=== PATIENT | female | born 1955 | race Caucasian/White ===

== ENCOUNTER 2019-03-25 13:59 | Emergency (ER) | payer BC ==
--- OUTSIDE RECORDS SUMMARY | 2019-03-25 14:05 | XMS REPORT | Continuity of Care Document ---
:1955 External Reference #:[id number] Author Name Shawanda Montgomery MD Address [address] [place] [address] Care Team Providers Name Role Phone Shawanda Montgomery MD Primary Care Physician Unavailable Payers Date Identification Numbers Payment Provider Subscriber Effective: 2008 Policy Number: [id number] [facility] Keren Torres PayID: [id number] [address] [place] [address] Expires: 2008 Policy Number: [id number] [employer] DO Not Use Keren Torres Group Number: [id number] [address] PayID: [place] [address] Advance Directives Description No Information Available Problems Active Problems Provider Date Gastroesophageal reflux disease Homar Haney DO Onset: 01/19/2011 Vitamin D deficiency Homar Haney DO Onset: 01/19/2011 Menopausal and postmenopausal disorders Homar Haney DO Onset: 2010 Moderate major depression, single episode Homar Haney DO Onset: 2010 Hypothyroidism Homar Haney DO Onset: 12/06/2006 Arthropathy Shawanda Montgomery MD Onset: 04/18/2018 Lumbar radiculopathy Shawanda Montgomery MD Onset: 04/18/2018 Neck pain Shawanda Montgomery MD Onset: 04/18/2018 Obstructive sleep apnea syndrome Shawanda Montgomery MD Onset: 09/16/2018 Inactive Problems Mitral valve disorder Shawanda Montgomery MD Onset: 01/28/2018 Inactive: 04/18/2018 Family History Date Family Member(s) Observation Comments General Atrial Fibrillation : (age 80 Father due to Alzheimer's diagnosed at 72 Years) Disease Mother Atrial Fibrillation : (age 87 Mother due to CHF also had CML Years) First Brother mitral valve repair Second Brother mitral valve repair : (age 68 Third Brother due to Cancer, Brain Years) Social History Type Date Description Comments Sex Unknown Marital Status 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 ETOH Use Occasionally consumes alcohol Tobacco Use Start: Unknown Patient has never smoked Smoking Status Reviewed: 04/18/18 Patient has never smoked Allergies, Adverse Reactions, Alerts Active Allergies Reaction Severity Comments Date Ephedrine Sulfate 06/29/2007 Medications Active Medications SIG Qnty Indications Ordering Provider Date Amoxicillin 1 by mouth twice 20tabs H66.42 Shawanda Montgomery, 03/10/2019 875mg Tablets a day for 10 MD days Melatonin 1 by mouth every 30caps Shawanda Montgomery, 04/18/2018 3mg Capsules night at bedtime MD as needed otc Valacyclovir HCL take 2 tablets 8tabs B00.9 Shawanda Montgomery, 09/29/2016 1gm every 12 hours x MD Tablets 1 day then if needed for cold sore Vitamin D 2 by mouth every 30tabs E55.9 Shawanda Montgomery, 08/31/2016 2000Unit day MD Tablets Rabeprazole Sodium take 1 tablet by 90tabs K21.9 Shawanda Montgomery, 2013 20mg mouth once daily MD Tablets DR K29.00 Levothyroxine Sodium take 1 tablet by 90tabs E03.9 Shawanda Montgomery, 2010 88mcg mouth once daily MD Tablets Acetaminophen 2 by mouth three Unknown 500mg Tablets times a day as needed Aleve 2 by mouth twice a Unknown 220mg Tablets day Vitamin E 1 by mouth every day Unknown 400Unit Capsules Saline Nasal [place] 1-2sprays as needed Unknown 0.65% congestion Solution Zicam Cold Remedy take as directed Unknown Tablets Dispers Citrucel 1 tablespoon as Unknown Powder needed daily to bulk stool and reduce constipation abdominal pain Magnesium One tablet at night Unknown Chloride-Calcium 64-112mg Tablets History Medications Escitalopram Oxalate 1/2 by mouth 30tabs F32.1 Shawanda Montgomery, 2017 - 10mg every day 09/15/2018 Tablets Citra PH 1 tbls qday Shawanda Montgomery, 04/18/2018 - 2.7GM/30ML 09/15/2018 Solution Escitalopram Oxalate 1 by mouth 30tabs F32.1 Shawanda Montgomery, 04/18/2018 - 10mg every day 06/10/2018 Tablets Sertraline HCL 1 by mouth 90tabs Lyndon, 07/15/2015 - 50mg every day DO Homar 01/13/2016 Tablets Bupropion HCL ER (XL) 1 PO Q D 30tabs 296.33 Lyndon, 12/04/2014 - DO Homar 01/07/2015 150mg Tablets ER 24HR Triamcinolone apply to sore 15gm Lyndon, 01/30/2013 - Acetonide bid DO Homar 01/07/2015 0.1% Paste Vitamin D 1 po bid Lyndon, 01/25/2012 - (Cholecalciferol) DO Homar 07/15/2015 1000Unit Tablets Vitamin D take 1 capsule Unknown - (Ergocalciferol) by mouth every 08/31/2016 week [id number] Capsules Immunizations CPT Code Status Date Vaccine Reaction Lot # [id number] Given 08/02/2018 Flu Vaccine NOS given at pharmacy 29752 Given 08/01/2017 Afluria Or Fluvirin Flu Vac Intramuscular 17179 Given 03/01/2017 Tdap (Adacel) Ages 7 And Pt tolerated well [id number] Above Only 07286 Given 08/22/2015 Influenza Virus RECEIVED AT [employer]. Vaccine,Quadrivalent,Split, Preserv Free, 0.5mL,[place] [address] Given 08/30/2014 Afluria Or Fluvirin Flu Vac RECEIVED AT [facility]. [address] Refused 11/28/2018 Shingrix (Shingles) Zoster Vaccine HZV, Recombinant , Subunit, Adj Vital Signs Date Vital Result Comment 03/10/2019 10:39am Body Temperature 98.1 F Weight 170.00 lb Heart Rate 76 /min BP Systolic 118 mmHg BP Diastolic 70 mmHg Respiratory Rate 16 /min Height 60.50 inches 5'0.50" O2 % BldC Oximetry 98 % Ra BMI (Body Mass Index) 32.7 kg/m2 11/28/2018 9:51am Weight 170.31 lb Heart Rate 81 /min BP Systolic 126 mmHg BP Diastolic 74 mmHg Respiratory Rate 16 /min Height 60.50 inches 5'0.50" O2 % BldC Oximetry 96 % Ra BMI (Body Mass Index) 32.7 kg/m2 09/16/2018 3:46pm Weight 167.00 lb Heart Rate 83 /min BP Systolic 118 mmHg BP Diastolic 68 mmHg Respiratory Rate 16 /min Height 60.50 inches 5'0.50" O2 % BldC Oximetry 98 % Ra BMI (Body Mass Index) 32.1 kg/m2 08/16/2018 9:51am Weight 165.00 lb Heart Rate 73 /min Respiratory Rate 16 /min Height 60.50 inches 5'0.50" O2 % BldC Oximetry 97 % Ra BMI (Body Mass Index) 31.7 kg/m2 06/10/2018 3:48pm Weight 162.00 lb Heart Rate 60 /min BP Systolic 122 mmHg BP Diastolic 80 mmHg Respiratory Rate 18 /min Height 60.50 inches 5'0.50"01/28/18 BMI (Body Mass Index) 31.1 kg/m2 04/18/2018 10:11am Weight 162.00 lb Heart Rate 76 /min BP Systolic 112 mmHg BP Diastolic 70 mmHg Respiratory Rate 18 /min Height 60.50 inches 5'0.50"01/28/18 BMI (Body Mass Index) 31.1 kg/m2 01/28/2018 2:24pm Weight 162.00 lb Heart Rate 68 /min BP Systolic 122 mmHg BP Diastolic 60 mmHg Respiratory Rate 18 /min Height 60.50 inches 5'0.50"01/28/18 BMI (Body Mass Index) 31.1 kg/m2 09/06/2017 8:09am Weight 158.00 lb Heart Rate 76 /min 80 Reg BP Systolic 112 mmHg BP Diastolic 70 mmHg BP Systolic Recheck 118 mmHg BP Diastolic Recheck 78 mmHg Respiratory Rate 18 /min 03/01/2017 8:07am Weight 156.00 lb Heart Rate 76 /min 72 Reg BP Systolic 122 mmHg BP Diastolic 70 mmHg BP Systolic Recheck 120 mmHg BP Diastolic Recheck 70 mmHg Respiratory Rate 18 /min Height 60.5 inches 5'0.50"03/01/17 BMI (Body Mass Index) 30.0 kg/m2 08/31/2016 10:12am Weight 154.00 lb Heart Rate 78 /min BP Systolic 122 mmHg BP Diastolic 80 mmHg Respiratory Rate 18 /min Height 60.5 inches 5'0.50" BMI (Body Mass Index) 29.6 kg/m2 01/13/2016 8:04am Weight 151.00 lb Heart Rate 84 /min 72 Reg BP Systolic 138 mmHg BP Diastolic 62 mmHg BP Systolic Recheck 118 mmHg BP Diastolic Recheck 70 mmHg Respiratory Rate 18 /min Height 60.5 inches 5'0.50" BMI (Body Mass Index) 29.0 kg/m2 07/15/2015 8:10am Weight 150.00 lb Heart Rate 72 /min 72 Reg BP Systolic 104 mmHg BP Diastolic 70 mmHg BP Systolic Recheck 110 mmHg BP Diastolic Recheck 70 mmHg Respiratory Rate 18 /min 01/07/2015 8:07am Weight 147.00 lb Heart Rate 72 /min Reg BP Systolic Recheck 120 mmHg BP Diastolic Recheck 70 mmHg Respiratory Rate 18 /min Height 60.5 inches 5'0.50" BMI (Body Mass Index) 28.2 kg/m2 12/04/2014 9:06am Weight 148.00 lb Heart Rate 72 /min BP Systolic 120 mmHg BP Diastolic 70 mmHg Respiratory Rate 18 /min Height 60.5 inches 5'0.50" BMI (Body Mass Index) 28.4 kg/m2 07/09/2014 8:06am BP Systolic 100 mmHg BP Diastolic 66 mmHg 07/09/2014 8:06am Weight 144.00 lb Heart Rate 78 /min 72 Reg BP Systolic 110 mmHg BP Diastolic 62 mmHg Respiratory Rate 18 /min 01/30/2013 8:09am BP Systolic 90 mmHg BP Diastolic 70 mmHg 01/30/2013 8:09am Weight 152.00 lb Heart Rate 72 /min 72 Reg BP Systolic 110 mmHg BP Diastolic 70 mmHg Respiratory Rate 18 /min 08/01/2012 8:06am BP Systolic 118 mmHg BP Diastolic 74 mmHg 08/01/2012 8:06am Weight 152.00 lb Heart Rate 72 /min 72 Reg BP Systolic 104 mmHg BP Diastolic 76 mmHg Respiratory Rate 18 /min Height 60.75 inches 5'0.75" 01/25/2012 8:08am BP Systolic 110 mmHg BP Diastolic 74 mmHg 01/25/2012 8:08am Weight 153.00 lb Heart Rate 66 /min 72 Reg BP Systolic 92 mmHg BP Diastolic 60 mmHg Respiratory Rate 18 /min Height 61 inches 5'1" 07/27/2011 8:08am BP Systolic 110 mmHg BP Diastolic 72 mmHg 07/27/2011 8:08am Weight 148.00 lb Heart Rate 72 /min BP Systolic 102 mmHg BP Diastolic 70 mmHg Respiratory Rate 18 /min Height 61 inches 5'1" 01/19/2011 8:08am BP Systolic 110 mmHg BP Diastolic 70 mmHg 01/19/2011 8:08am Weight 153.00 lb Heart Rate 66 /min 72 Reg BP Systolic 112 mmHg BP Diastolic 70 mmHg Respiratory Rate 18 /min 07/21/2010 8:02am Weight 152.00 lb Heart Rate 72 /min BP Systolic 102 mmHg BP Diastolic 64 mmHg Respiratory Rate 18 /min 06/23/2010 2:57pm Body Temperature 97.7 F Weight 150.00 lb Heart Rate 68 /min BP Systolic 100 mmHg BP Diastolic 70 mmHg 01/13/2010 8:14am BP Systolic 118 mmHg BP Diastolic 74 mmHg 01/13/2010 8:14am Weight 151.00 lb Heart Rate 96 /min BP Systolic 108 mmHg BP Diastolic 60 mmHg Respiratory Rate 16 /min 12/02/2009 8:44am Weight 153.31 lb Heart Rate 72 /min BP Systolic 124 mmHg BP Diastolic 60 mmHg Respiratory Rate 16 /min 07/15/2009 8:00am Weight 149.00 lb Heart Rate 78 /min BP Systolic 104 mmHg BP Diastolic 76 mmHg Respiratory Rate 18 /min 01/04/2009 4:09pm Weight 148.00 lb Heart Rate 78 /min BP Systolic 118 mmHg BP Diastolic 68 mmHg Respiratory Rate 18 /min 06/28/2008 4:17pm Weight 147.00 lb Heart Rate 78 /min BP Systolic 102 mmHg BP Diastolic 68 mmHg 04/17/2008 1:10pm Weight 145.00 lb Heart Rate 78 /min BP Systolic 100 mmHg BP Diastolic 62 mmHg Respiratory Rate 18 /min 03/27/2008 11:33am Weight 149.00 lb Heart Rate 72 /min BP Systolic 110 mmHg BP Diastolic 72 mmHg Respiratory Rate 18 /min 03/05/2008 11:29am Weight 149.00 lb Heart Rate 72 /min BP Systolic 114 mmHg BP Diastolic 72 mmHg Respiratory Rate 18 /min 12/29/2007 11:11am Weight 150.00 lb Heart Rate 72 /min BP Systolic 108 mmHg BP Diastolic 68 mmHg Respiratory Rate 18 /min 06/29/2007 11:18am Weight 146.00 lb Heart Rate 72 /min BP Systolic 108 mmHg BP Diastolic 64 mmHg Respiratory Rate 18 /min 12/06/2006 1:03pm Weight 147.00 lb Heart Rate 78 /min BP Systolic 112 mmHg BP Diastolic 68 mmHg Respiratory Rate 18 /min 06/04/2006 9:52am Weight 144.00 lb Heart Rate 72 /min BP Systolic 108 mmHg BP Diastolic 52 mmHg Respiratory Rate 18 /min 04/22/2006 9:03am Weight 146.00 lb Heart Rate 78 /min BP Systolic 106 mmHg BP Diastolic 56 mmHg Respiratory Rate 30 /min 01/15/2006 11:06am Body Temperature 98.0 F Weight 143.00 lb Heart Rate 96 /min Reg BP Systolic 100 mmHg LEFT BP Diastolic 74 mmHg LEFT Respiratory Rate 18 /min Results Test Date Facility Test Result H/L Range Note Laboratory test finding 01/26/2019 [facility] TSH 4.19 uIU/mL 0.35-4.94 1 Laboratory test finding 07/28/2018 [facility] TSH 1.10 uIU/mL 0.35-4.94 2 CBC with Auto Diff-fcmg 07/28/2018 [facility] WBC 5.2 K/uL 4.1-11.0 RBC 4.36 M/uL 4.00-5.40 Hemoglobin 13.2 gm/dL 12.0-16.0 Hematocrit 38.8 % 36.0-47.0 MCV 89.0 fL 80.0-97.0 MCH 30.3 pg 27.0-32.0 MCHC 34.1 g/dL 32.0-36.0 RDW 13.4 % 11.5-14.5 PLT Count 205 K/ul 140-400 MPV 8.7 FL 7.1-10.7 Neutrophil 43.1 % 35.0-75.0 Lymphocyte 44.8 % 16.0-52.0 Monocyte 7.8 % 2.0-10.0 Eosinophil 3.8 % 0.0-5.0 Basophil 0.5 % 0.0-4.0 Abs Neutrophils 2.2 K/uL 2.1-8.0 Abs Lymphocytes 2.3 K/uL 0.8-5.5 Abs Monocytes 0.4 K/uL 0.1-1.0 Abs Eosinophils 0.2 K/uL 0.0-0.5 Abs Basophils 0.0 K/uL 0.0-0.3 Laboratory test finding 07/28/2018 [facility] Vitamin D 25 Hydroxy 50 ng/mL 30-100 3 Esr 8 mm/hr 0-20 CCP Antibody Igg Negative Negative Rheumatoid Factor <10.0 IU/mL 0.0-10.0 Laboratory test 01/31/2018 [facility] Hepatitis C 0.1 s/ corat 0.0-0.9 4, 5 finding (315)- - Antibody Thyroid Stim Hormone 0.85 uIU/mL N 0.30-4.20 Lipid Panel-fcmg 01/31/2018 [facility] Cholesterol 186 mg /dL <200 6 (315)- - Triglycerides 106 mg/dL <150 7 HDL Cholesterol 54 mg/dL >40 8 LDL-Cholesterol 111 mg/dL < 100 9 Hepatic (Liver) 01/31/2018 [facility] Total Protein 7.5 g /dL N 6.4-8.2 Panel-fcmg (315)- - Albumin 4.0 g/dL N 3.4-5.0 Globulin 3.5 g/dL N 1.9-4.3 Alb/Glob 1.1 ratio Bilirubin,Total 0.5 mg/dL N 0.2-1.0 Bilirubin,Direct 0.1 mg/dL N 0.0-0.2 Bilirubin,Indirect 0.4 mg/dL N 0.0-0.9 Sgot/Ast 17 U/L N 15-37 SGPT/Alt 28 U/L N 12-78 Alkaline Phosphatase 69 U/L N 45-117 BMP (Basic) 01/31/2018 [facility] Glucose 90 mg/dL N 74 -106 (315)- - BUN 16 mg/dL N 7-18 Creatinine 0.9 mg/dL N 0.6-1.3 Glom Filtration Rate, Estimate >60 mL/min >60 If >60 mL/min >60 10 BUN/Creat 17.7 ratio Sodium 141 mmol/L N 136-145 Potassium 4.0 mmol/L N 3.5-5.1 Chloride 106 mmol/L N 98-107 Carbon Dioxide 30 mmol/L N 21-32 Anion Gap 5 mEq/L Low 8-16 Calcium 9.1 mg/dL N 8.5-10.1 Laboratory test 01/31/2018 [facility] Sedimentation Rate 6 mm/hr N 0-30 11 finding (315)- - Vitamin D,25-Hydroxy 50.7 ng/mL 30.0-100.0 12 CBC 01/31/2018 [facility] White Blood Count 5.4 K/uL N 3.1-10.7 (315)- - Red Blood Count 4.16 M/uL N 3.90-5.40 Hemoglobin 12.9 gm/dL N 11.6-15.8 Hematocrit 37.4 % N 36.0-46.1 Mean Cell Volume 89.9 fl N 80.9-99.0 Mean Corpuscular HGB 31.0 pg N 25.9-32.7 Mean Corpuscular HGB Conc 34.5 g/dL High 30.8-34.3 Platelet Count 212 K/uL N 155-360 Red Cell Distri Width %CV 13.0 % N 11.7-14.4 Mean Platelet Volume 10.6 fL N 8.9-12.4 Laboratory test 01/08/2018 [facility] Troponin-I < 0.015 13, 14 finding (315)- - ng/mL CBS W/Automated 01/08/2018 [facility] White Blood 8.7 K/ uL N 3.1-10 Diff (315)- - Count .7 Red Blood Count 4.41 M/uL N 3.90-5.40 Hemoglobin 13.5 gm/dL N 11.6-15.8 Hematocrit 39.4 % N 36.0-46.1 Mean Cell Volume 89.3 fl N 80.9-99.0 Mean Corpuscular HGB 30.6 pg N 25.9-32.7 Mean Corpuscular HGB Conc 34.3 g/dL N 30.8-34.3 Platelet Count 235 K/uL N 155-360 Red Cell Distri Width SD 40.7 fl N 3-47 Red Cell Distri Width %CV 12.8 % N 11.7-14.4 Mean Platelet Volume 10.6 fL N 8.9-12.4 Neut% 43.7 % N 40.4-72.8 Lymph % 47.5 % High 20.0-42.0 Mohave % 6.1 % N 4.3-13.2 Eo% 2.1 % N 0.0-6.6 Bas% 0.6 % N 0.0-1.1 Neut# 3.80 K/uL N 1.8-7.0 Lymph # 4.13 K/uL High 1.0-4.0 [place] # 0.53 K/uL N 0.3-0.9 Eos # 0.18 K/uL N 0.0-0.5 Baso # 0.05 K/uL N 0.0-0.1 Laboratory test finding 09/06/2017 [facility] TSH 1.54 uIU/mL 0.35-4.94 15 Free T4 1.01 ng/dL 0.70-1.48 Vit D25oh 55 ng/mL 31-100 CBC With Auto Diff 09/06/2017 [facility] WBC 6.3 K/uL 4.1-11.0 RBC 4.39 M/uL 4.00-5.40 Hemoglobin 13.6 gm/dL 12.0-16.0 Hematocrit 39.7 % 36.0-47.0 MCV 90.3 fL 80.0-97.0 MCH 30.9 pg 27.0-32.0 MCHC 34.2 g/dL 32.0-36.0 RDW 13.1 % 11.5-14.5 PLT Count 231 K/ul 140-400 MPV 8.4 FL 7.1-10.7 Neutrophil 47.5 % 35.0-75.0 Lymphocyte 41.7 % 16.0-52.0 Monocyte 7.8 % 2.0-10.0 Eosinophil 2.3 % 0.0-5.0 Basophil 0.7 % 0.0-4.0 Abs Neutrophils 3.0 K/uL 2.1-8.0 Abs Lymphocytes 2.6 K/uL 0.8-5.5 Abs Monocytes 0.5 K/uL 0.1-1.0 Abs Eosinophils 0.1 K/uL 0.0-0.5 Abs Basophils 0.0 K/uL 0.0-0.3 Comprehensive Met Panel-FCMG 09/06/2017 [facility] Sodium 146 mmol/L 135- 146 16 Potassium 4.1 mmol/L 3.5-5.2 Chloride# 107 mmol/L 97-110 17 Carbon Dioxide 28 mmol/L 24-34 Glucose 88 mg/dL 70-105 Creatinine 0.9 mg/dL 0.5-1.4 Calcium 9.7 mg/dL 8.5-10.2 Total Protein 7.0 g/dL 6.0-8.0 Albumin 4.5 g/dL 3.6-4.9 Globulin 2.5 g/dL 2.0-3.5 A/G Ratio 1.8 Ratio 1.0-2.2 Total Bilirubin 0.4 mg/dL 0.1-1.3 Alkaline Phosphatase 70 U/L 24-140 Alt 23 U/L 3-42 Ast 18 U/L 8-42 Magali Egfr >60 >60 18 Non Magali Egfr >60 >60 19 Anion Gap 11 mmol/L 7-16 20 BUN 17 mg/dL 6-26 Laboratory test finding 09/06/2017 [facility] Magnesium 2.1 mg/dL 1.5-2.7 Lipid 09/06/2017 [facility] Cholesterol 214 mg/dL High 50-199 Triglycerides 113 mg/dL 30-150 HDL 53 mg/dL 45-85 21 Chol/ HDL Ratio 4.1 ratio 3.7-5.6 VLDL 23 mg/dL 2-29 LDL (Calc) 139 mg/dL High 20-129 22 CBC With Auto Diff 03/01/2017 [facility] WBC 5.8 K/uL 4.1-11.0 RBC 4.48 M/uL 4.00-5.40 Hemoglobin 13.4 gm/dL 12.0-16.0 Hematocrit 40.3 % 36.0-47.0 MCV 89.8 fL 80.0-97.0 MCH 29.9 pg 27.0-32.0 MCHC 33.3 g/dL 32.0-36.0 RDW 12.6 % 11.5-14.5 PLT Count 209 K/ul 140-400 Neutrophil 43.4 % 35.0-75.0 Lymphocyte 44.1 % 16.0-52.0 Monocyte 8.6 % 2.0-10.0 Eosinophil 3.4 % 0.0-5.0 Basophil 0.5 % 0.0-4.0 Abs Neutrophils 2.5 K/uL 2.1-8.0 Abs Lymphocytes 2.6 K/uL 0.8-5.5 Abs Monocytes 0.5 K/uL 0.1-1.0 Abs Eosinophils 0.2 K/uL 0.0-0.5 Abs Basophils 0.0 K/uL 0.0-0.3 Laboratory test finding 03/01/2017 [facility] Vitamin B12 772 pg/mL 180- 914 Rheumatoid Factor <10.0 IU/mL 0.0-10.0 Kandy Screen With Reflex-FCMG 03/01/2017 [facility] Kandy Screen NEGATIVE dsDNA IgG NEGATIVE Laboratory test finding 03/01/2017 [facility] Esr 2 mm/hr 0-20 TSH 0.77 uIU/mL 0.35-4.94 Free T4 1.13 ng/dL 0.70-1.48 Vit D,25 Hydroxy 46 ng/mL 31-100 Laboratory test finding 08/31/2016 [facility] TSH 0.94 uIU/mL 0.35-4.94 Free T4 1.20 ng/dL 0.70-1.48 Vit D,25 Hydroxy 38 ng/mL 31-100 Laboratory test finding 01/13/2016 [facility] Free T4 1.17 ng/dL 0.70-1.48 TSH 1.46 uIU/mL 0.35-4.94 Vit D,25 Hydroxy 52 ng/mL 31-100 Laboratory test finding 01/07/2015 [facility] TSH 0.68 uIU/mL 0.34-5.60 Free T4 1.18 ng/dL 0.50-1.60 Laboratory test 12/04/2014 [facility] Vit D,25 Hydroxy 67 ng/mL 31-100 finding Laboratory test 07/09/2014 N2N/CCD Import Alb/Glob 1.5 ratio finding Albumin 4.3 g/dL 3.5-5.0 Alkaline Phosphatase 83 U/L 50-136 Anion Gap 9 mEq/L 8-16 BUN 18 mg/dL 5-23 BUN/Creat 20.0 ratio Bas% 0.5 % 0.0-1.1 Baso # 0.03 K/uL 0.0-0.1 Bilirubin,Total 0.3 mg/dL 0.2-1.2 Calcium 9.1 mg/dL 8.5-10.1 Carbon Dioxide 28 mEq/L 18-29 Chloride 107 mmol/L 98-107 Creatinine 0.9 mg/dL 0.5-1.4 Eo% 3.7 % 0.0-6.6 Eos # 0.24 K/uL 0.0-0.5 Free T4 1.18 ng/dL 0.71-1.85 Globulin 2.9 g/dL 1.9-4.3 Glom Filtration Rate, Estimate >60 mL/min >60 Glucose 88 mg/dL 76-115 Hematocrit 38.4 % 36.0-46.1 Hemoglobin 13.4 gm/dL 11.6-15.8 If >60 mL/min >60 23 Lymph # 2.68 K/uL 0.8-3.4 Lymph % 41.4 % 17.0-46.1 Mean Cell Volume 89.5 fl 80.9-99.0 Mean Corpuscular HGB 31.2 pg 25.9-32.7 Mean Corpuscular HGB Conc 34.9 g/dL High 30.8-34.3 Mean Platelet Volume 11.2 fL 8.9-12.4 Mohave # 0.49 K/uL 0.3-0.9 Mohave % 7.6 % 4.3-13.2 Neut# 3.03 K/uL 1.0-7.0 Neut% 46.8 % 40.4-72.8 Platelet Count 252 K/uL 155-360 Potassium 3.9 mmol/L 3.5-5.1 Red Blood Count 4.29 M/uL 3.90-5.40 Red Cell Distri Width %CV 12.8 % 11.7-14.4 Red Cell Distri Width SD 41.2 fl 3-47 SGPT/Alt 25 U/L Low 30-65 Sgot/Ast 16 U/L 16-40 Sodium 140 mmol/L 136-145 Thyroid Stim Hormone 0.11 uIU/mL Low 0.49-4.67 24 Total Protein 7.2 g/dL 6.3-8.0 Vitamin D,25-Hydroxy 45.1 ng/mL 30.0-100.0 25 White Blood Count 6.5 K/uL 3.1-10.7 Laboratory test finding 01/30/2013 N2N/CCD Import Anion Gap 11 mEq/L 8- 16 BUN 17 mg/dL 5-23 BUN/Creat 21.2 ratio Bas% 0.4 % 0.0-1.1 Baso # 0.03 K/uL 0.0-0.1 Calcium 9.2 mg/dL 8.5-10.1 Carbon Dioxide 30 mEq/L High 18-29 Chloride 105 mmol/L 98-107 Creatinine 0.8 mg/dL 0.5-1.4 Eo% 2.9 % 0.0-6.6 Eos # 0.21 K/uL 0.0-0.5 Free T4 1.22 ng/dL 0.71-1.85 Glom Filtration Rate, Estimate >60 mL/min >60 Glucose 91 mg/dL 76-115 Hematocrit 38.4 % 36.0-46.1 Hemoglobin 13.4 gm/dL 11.6-15.8 If >60 mL/min >60 26 Lymph # 2.83 K/uL 0.8-3.4 Lymph % 39.1 % 17.0-46.1 Magnesium 1.8 mg/dL 1.7-2.3 Mean Cell Volume 88.7 fl 80.9-99.0 Mean Corpuscular HGB 30.9 pg 25.9-32.7 Mean Corpuscular HGB Conc 34.9 g/dL High 30.8-34.3 Mean Platelet Volume 10.8 fL 8.9-12.4 Mohave # 0.59 K/uL 0.3-0.9 Mohave % 8.1 % 4.3-13.2 Neut# 3.58 K/uL 1.0-7.0 Neut% 49.5 % 40.4-72.8 Platelet Count 256 K/uL 155-360 Potassium 4.2 mmol/L 3.5-5.1 Red Blood Count 4.33 M/uL 3.90-5.40 Red Cell Distri Width %CV 12.7 % 11.7-14.4 Red Cell Distri Width SD 40.1 fl 3-47 Sodium 142 mmol/L 136-145 Thyroid Stim Hormone 0.37 uIU/mL Low 0.49-4.67 27 Vitamin D,25-Hydroxy 44.9 ng/mL 30.0-100.0 28 White Blood Count 7.2 K/uL 3.1-10.7 Laboratory test finding 08/01/2012 N2N/CCD Import Anion Gap 12 mEq/L 8- 16 BUN 16 mg/dL 5-23 BUN/Creat 17.7 ratio Bas% 0.5 % 0.0-1.1 Baso # 0.03 K/uL 0.0-0.1 Calcium 9.3 mg/dL 8.5-10.1 Carbon Dioxide 28 mEq/L 18-29 Chloride 106 mmol/L 98-107 Creatinine 0.9 mg/dL 0.5-1.4 Eo% 3.7 % 0.0-6.6 Eos # 0.21 K/uL 0.0-0.5 Free T4 1.22 ng/dL 0.71-1.85 Glom Filtration Rate, Estimate >60 mL/min >60 Glucose 91 mg/dL 76-115 Hematocrit 38.3 % 36.0-46.1 Hemoglobin 13.1 gm/dL 11.6-15.8 If >60 mL/min >60 29 Lymph # 2.24 K/uL 0.8-3.4 Lymph % 39.6 % 17.0-46.1 Magnesium 2.2 mg/dL 1.7-2.3 Mean Cell Volume 88.5 fl 80.9-99.0 Mean Corpuscular HGB 30.3 pg 25.9-32.7 Mean Corpuscular HGB Conc 34.2 g/dL 30.8-34.3 Mean Platelet Volume 10.3 fL 8.9-12.4 Mohave # 0.62 K/uL 0.3-0.9 Mohave % 11.0 % 4.3-13.2 Neut# 2.55 K/uL 1.0-7.0 Neut% 45.2 % 40.4-72.8 Platelet Count 241 K/uL 155-360 Potassium 3.9 mmol/L 3.5-5.1 Red Blood Count 4.33 M/uL 3.90-5.40 Red Cell Distri Width %CV 12.8 % 11.7-14.4 Red Cell Distri Width SD 39.9 fl 3-47 Sodium 142 mmol/L 136-145 Thyroid Stim Hormone 0.91 uIU/mL 0.49-4.67 Vitamin D,25-Hydroxy 38.8 ng/mL 30.0-100.0 30 White Blood Count 5.7 K/uL 3.1-10.7 LDL Cholesterol 08/01/2012 N2N/CCD Import Cholesterol 202 mg/dL High 120- 200 Profile HDL Cholesterol 56 mg/dL 45-83 LDL-Cholesterol 129 mg/dL 62-129 Triglycerides 87 mg/dL 16-150 Vitamin B12 And 08/01/2012 N2N/CCD Import Folic Acid 37.3 ng/mL High 6.0- 15.4 Folate Vitamin B12 773 pg/mL 200-900 Laboratory test finding 01/25/2012 N2N/CCD Import Anion Gap 16 mEq/L 8- 16 BUN 15 mg/dL 5-23 BUN/Creat 18.7 ratio Bas% 0.3 % 0.0-1.1 Baso # 0.02 K/uL 0.0-0.1 Calcium 9.5 mg/dL 8.5-10.1 Carbon Dioxide 29 mEq/L 18-29 Chloride 103 mmol/L 98-107 Creatinine 0.8 mg/dL 0.5-1.4 Eo% 2.8 % 0.0-6.6 Eos # 0.17 K/uL 0.0-0.5 Free T4 1.02 ng/dL 0.71-1.85 31 Glom Filtration Rate, Estimate >60 mL/min >60 Glucose 87 mg/dL 76-115 Hematocrit 40.6 % 36.0-46.1 Hemoglobin 13.7 gm/dL 11.6-15.8 If >60 mL/min >60 32 Lymph # 2.78 K/uL 0.8-3.4 Lymph % 45.5 % 17.0-46.1 Mean Cell Volume 89.2 fl 80.9-99.0 Mean Corpuscular HGB 30.1 pg 25.9-32.7 Mean Corpuscular HGB Conc 33.7 g/dL 30.8-34.3 Mean Platelet Volume 10.9 fL 8.9-12.4 Mohave # 0.54 K/uL 0.3-0.9 Mohave % 8.8 % 4.3-13.2 Neut# 2.60 K/uL 1.0-7.0 Neut% 42.6 % 40.4-72.8 Platelet Count 250 K/uL 155-360 Potassium 4.0 mmol/L 3.5-5.1 Red Blood Count 4.55 M/uL 3.90-5.40 Red Cell Distri Width %CV 12.6 % 11.7-14.4 Red Cell Distri Width SD 40.0 fl 3-47 Sodium 144 mmol/L 136-145 Thyroid Stim Hormone 0.56 uIU/mL 0.49-4.67 33 Vitamin D,25-Hydroxy 47.3 ng/mL 30.0-100.0 34 White Blood Count 6.1 K/uL 3.1-10.7 Laboratory test finding 07/27/2011 N2N/CCD Import Anion Gap 13 mEq/L 8- 16 BUN 15 mg/dL 5-23 BUN/Creat 16.6 ratio Bas% 0.5 % 0.0-1.1 Baso # 0.03 K/uL 0.0-0.1 Calcium 9.9 mg/dL 8.5-10.1 Carbon Dioxide 28 mEq/L 18-29 Chloride 104 mmol/L 98-107 Creatinine 0.9 mg/dL 0.5-1.4 Eo% 3.0 % 0.0-6.6 Eos # 0.17 K/uL 0.0-0.5 Free T4 1.03 ng/dL 0.71-1.85 35 Glom Filtration Rate, Estimate >60 mL/min >60 Glucose 66 mg/dL Low 76-115 Hematocrit 38.7 % 36.0-46.1 Hemoglobin 13.1 gm/dL 11.6-15.8 If >60 mL/min >60 36 Lymph # 2.61 K/uL 0.8-3.4 Lymph % 46.6 % High 17.0-46.1 Mean Cell Volume 89.4 fl 80.9-99.0 Mean Corpuscular HGB 30.3 pg 25.9-32.7 Mean Corpuscular HGB Conc 33.9 g/dL 30.8-34.3 Mean Platelet Volume 10.6 fL 8.9-12.4 Mohave # 0.46 K/uL 0.3-0.9 Mohave % 8.2 % 4.3-13.2 Neut# 2.33 K/uL 1.0-7.0 Neut% 41.7 % 40.4-72.8 Platelet Count 236 K/uL 155-360 Potassium 4.1 mmol/L 3.5-5.1 Red Blood Count 4.33 M/uL 3.90-5.40 Red Cell Distri Width %CV 12.6 % 11.7-14.4 Red Cell Distri Width SD 40.1 fl 3-47 Sodium 141 mmol/L 136-145 Thyroid Stim Hormone 0.55 uIU/mL 0.49-4.67 37 Vitamin D,25-Hydroxy 40.7 ng/mL 32.0-100.0 38 White Blood Count 5.6 K/uL 3.1-10.7 Laboratory test finding 01/19/2011 N2N/CCD Import Anion Gap 10 mEq/L 8- 16 BUN 17 mg/dL 5-23 BUN/Creat 17.0 Bas% 0.3 % 0.0-1.1 Baso # 0.02 K/uL 0.0-0.1 Calcium 9.3 mg/dL 8.5-10.1 Carbon Dioxide 29 mEq/L 21-32 Chloride 106 mEq/L 98-107 Creatinine 1.0 mg/dL 0.5-1.4 Eo% 2.2 % 0.0-6.6 Eos # 0.14 K/uL 0.0-0.5 Free T4 1.17 ng/dL 0.71-1.85 39 Glom Filtration Rate, Estimate >60 mL/min >60 Glucose 89 mg/dL 76-115 Hematocrit 39.5 % 36.0-46.1 Hemoglobin 13.3 gm/dL 11.6-15.8 If >60 mL/min >60 40 Lymph # 2.62 K/uL 0.8-3.4 Lymph % 40.9 % 17.0-46.1 Mean Cell Volume 89.8 fl 80.9-99.0 Mean Corpuscular HGB 30.2 pg 25.9-32.7 Mean Corpuscular HGB Conc 33.7 g/dL 30.8-34.3 Mean Platelet Volume 10.5 fL 8.9-12.4 Mohave # 0.53 K/uL 0.3-0.9 Mohave % 8.3 % 4.3-13.2 Neut# 3.10 K/uL 1.0-7.0 Neut% 48.3 % 40.4-72.8 Platelet Count 257 K/uL 155-360 Potassium 4.0 mEq/L 3.5-5.1 Red Blood Count 4.40 M/uL 3.90-5.40 Red Cell Distri Width %CV 12.4 % 11.7-14.4 Red Cell Distri Width SD 39.8 fl 3-47 Sodium 141 mEq/L 136-145 Thyroid Stim Hormone 0.85 uIU/mL 0.49-4.67 41 Vitamin D,25-Hydroxy 43.0 ng/mL 32.0-100.0 42 White Blood Count 6.4 K/uL 3.1-10.7 Laboratory test finding 07/21/2010 N2N/CCD Import Anion Gap 11 mEq/L 8- 16 BUN 16 mg/dL 5-23 BUN/Creat 17.7 Bas% 0.4 % 0.0-1.1 Baso # 0.0 K/uL 0.0-0.1 Calcium 9.1 mg/dL 8.5-10.1 Carbon Dioxide 28 mEq/L 21-32 Chloride 102 mEq/L 98-107 Creatinine 0.9 mg/dL 0.5-1.4 Eo% 2.4 % 0.0-6.6 Eos # 0.1 K/uL 0.0-0.5 Free T4 0.98 ng/dL 0.71-1.85 43 Glom Filtration Rate, Estimate >60 mL/min >60 Glucose 81 mg/dL 76-115 Helicobacter Pylori, Igg 0.9 U/mL 0.0-0.9 44 Hematocrit 39.0 % 36.0-46.1 Hemoglobin 13.2 gm/dL 11.6-15.8 If >60 mL/min >60 45 Lymph # 2.1 K/uL 0.8-3.4 Lymph % 38.5 % 17.0-46.1 Mean Cell Volume 88.8 fl 80.9-99.0 Mean Corpuscular HGB 30.1 pg 25.9-32.7 Mean Corpuscular HGB Conc 33.8 g/dL 30.8-34.3 Mean Platelet Volume 10.3 fL 8.9-12.4 Mohave # 0.5 K/uL 0.3-0.9 Mohave % 8.7 % 4.3-13.2 Neut# 2.7 K/uL 1.0-7.0 Neut% 50.0 % 40.4-72.8 Platelet Count 232 K/uL 155-360 Potassium 3.7 mEq/L 3.5-5.1 Red Blood Count 4.39 M/uL 3.90-5.40 Red Cell Distri Width %CV 12.5 % 11.7-14.4 Red Cell Distri Width SD 40 fl 3-47 Sodium 137 mEq/L 136-145 Thyroid Stim Hormone 1.08 uIU/mL 0.49-4.67 46 Vitamin D,25-Hydroxy 46.5 ng/mL 32.0-100.0 47 White Blood Count 5.4 K/uL 3.1-10.7 Laboratory test finding 01/13/2010 N2N/CCD Import Anion Gap 11 mEq/L 8- 16 BUN 17 mg/dL 5-23 BUN/Creat 17.0 Bas% 0.5 % 0.0-1.1 Baso # 0.0 K/uL 0.0-0.1 Calcium 9.0 mg/dL 8.5-10.1 Carbon Dioxide 28 mEq/L 21-32 Chloride 104 mEq/L 98-107 Creatinine 1.0 mg/dL 0.5-1.4 Eo% 2.7 % 0.0-6.6 Eos # 0.2 K/uL 0.0-0.5 Free T4 1.14 ng/dL 0.71-1.85 48 Glom Filtration Rate, Estimate >60 mL/min >60 Glucose 94 mg/dL 76-115 Hematocrit 37.5 % 36.0-46.1 Hemoglobin 12.9 gm/dL 11.6-15.8 If >60 mL/min >60 49 Lymph # 2.3 K/uL 0.8-3.4 Lymph % 41.2 % 17.0-46.1 Mean Cell Volume 89.7 fl 80.9-99.0 Mean Corpuscular HGB 30.9 pg 25.9-32.7 Mean Corpuscular HGB Conc 34.4 g/dL High 30.8-34.3 Mean Platelet Volume 10.9 fL 8.9-12.4 Mohave # 0.5 K/uL 0.3-0.9 Mohave % 9.8 % 4.3-13.2 Neut# 2.5 K/uL 1.0-7.0 Neut% 45.8 % 40.4-72.8 Platelet Count 220 K/uL 155-360 Potassium 4.1 mEq/L 3.5-5.1 Red Blood Count 4.18 M/uL 3.90-5.40 Red Cell Distri Width %CV 12.2 % 11.7-14.4 Red Cell Distri Width SD 39 fl 3-47 Sodium 139 mEq/L 136-145 Thyroid Stim Hormone 0.23 uIU/mL Low 0.49-4.67 50 Vitamin D,25-Hydroxy 57.2 ng/mL 32.0-100.0 51 White Blood Count 5.5 K/uL 3.1-10.7 Laboratory test finding 07/15/2009 N2N/CCD Import Free T4 1.16 ng/dL 0.71-1.85 Thyroid Stim Hormone 0.60 uIU/mL 0.49-4.67 Vitamin D,25-Hydroxy 24.1 ng/mL Low 32.0-100.0 52 Vitamin B12 And Folate 01/04/2009 N2N/CCD Import Folic Acid 15.0 ng/mL 6.0-15.4 Vitamin B12 933 pg/mL 208-964 Laboratory test finding 01/04/2009 N2N/CCD Import Free T4 1.16 ng/dL 0.75-1.54 TSH 2.467 uIU/ml 0.50-6.00 Vitamin D,25-Hydroxy 27.2 ng/mL Low 32.0-100.0 53 Laboratory test finding 03/27/2008 N2N/CCD Import Free T4 1.41 ng/dL 0.75-1.54 TSH 1.554 uIU/ml 0.50-6.00 Lipid Panel 12/30/2007 N2N/CCD Import Chol/HDL Ratio 3.4 54, 55 Cholesterol 195 mg/dL 50-199 HDL Cholesterol 57 mg/dL 29-86 LDL 124 mg/dL 20-129 Triglycerides 70 mg/dL 30-249 VLDL Cholesterol 14 mg/dL Laboratory test 12/30/2007 N2N/CCD Import Absolute Basophils 0.02 K/ul 0.0-0.3 finding Absolute Eosinophils 0.17 K/ul 0.0-0.5 Absolute Lymphocytes 2.02 K/ul 0.8-4.8 Absolute Monocytes 0.34 K/ul 0.1-1.0 Absolute Neutrophils 2.91 K/ul 2.05-7.63 Anion Gap 11 mmol/L 10-20 BUN 16 mg/dL 7-18 BUN/CR Ratio 18.4 Ratio 12-20 Basophil 0.4 % 0-2 Calcium 9.5 mg/dL 8.7-10.5 Carbon Dioxide 28 mmol/L 22-30 Chloride 105 mmol/L 98-107 Creatinine, Serum 0.9 mg/dL 0.7-1.2 Eosinophil 3.2 % 0-4 Free T4 0.78 ng/dL 0.75-1.54 Glucose 77 mg/dL 65-105 Hematocrit 39.4 % 37.0-51.0 Hemoglobin 13.1 GM/dl 12.0-16.0 Lymphocytes 36.9 % 20-44 MCH 30.4 pg 26.0-32.0 MCHC 33.3 g/dL 31.0-36.0 MCV 92 FL 80-97 Monocytes 6.2 % 2-10.0 Neutrophils 53.3 % 50-70 Platelet Count 255 K/ul 140-440 Potassium 4.2 mmol/L 3.6-5.0 RBC 4.31 M/ul 4.2-6.3 RDW 12.3 % 11.5-14.5 Sodium 139 mmol/L 137-145 TSH 8.299 uIU/ml High 0.50-6.00 WBC 5.5 K/ul 4.1-10.9 Laboratory test 09/16/2007 N2N/CCD Import Rapid Urease Negative 56 finding Laboratory test 06/29/2007 N2N/CCD Import Free T4 1.03 ng/dL 0.75-1.54 finding TSH 1.892 uIU/ml 0.50-6.00 Laboratory test finding 12/06/2006 N2N/CCD Import Free T4 1.03 ng/dL 0.71-1.85 Thyroid Stim Hormone 2.05 uIU/mL 0.49-4.67 Triiodothyronine,Free 1.81 pg/mL 1.45-3.48 Laboratory test finding 06/21/2006 N2N/CCD Import Free T4 1.66 ng/dL High 0.75-1.54 TSH 1.892 uIU/ml 0.50-6.00 Laboratory test 01/15/2006 N2N/CCD Import Anti-Nuclear Negative Negative finding Antibody(S) Ferritin 10.0 ng/mL 3-105 Rheumatoid Factor Screen Negative Negative Vitamin B12 And Folate 01/15/2006 N2N/CCD Import Folic Acid 23.2 ng/mL > 5.4 57 Vitamin B12 1028 pg/mL High 211-911 1 2 mos 2 prior to follow-up in early august 3 Clinical Guidelines for recommended serum 25(OH)Vitamin D Deficient at less than 20 ng/mL Insufficient at 20 to <30 ng/mL Sufficient at 30-100 ng/mL Toxicity at greater than 100 ng/mL 4 NO DX 5 INFCE Result Units: s/co ratio Negative: < 0.8 Indeterminate: 0.8 - 0.9 Positive: > 0.9 The CDC recommends that a positive HCV antibody result be followed up with a HCV Nucleic Acid Amplification test (242818). Performed at: RN - [facility] [address] [id number] Certified Lactation Educator: Zaira Fuchs MD, Phone: [phone] Reference Guidelines*: Desirable: ........... < 200 mg/dL Borderline High: ..... 200-239 mg/dL High: ................ >=240 mg/dL * The National Cholesterol Education Program (NCEP) 7 Reference Guidelines*: Normal: ............. < 150 mg/dL Borderline High: .... 150-199 mg/dL High: ............... 200-499 mg/dL Very High: .......... > 500 mg/dL * Source: National Cholesterol Education Program (NCEP) 8 Reference Guidelines*: Low HDL: ..... < 40 mg/dL Normal: ..... 40-60 mg/dL Desirable: ... > 60 mg/dL *The National Cholesterol Education Program(NCEP) 9 Reference Guidelines*: Optimal:........... <100 mg/dL Near Optimal....... 100-129 mg/dL Borderline High.... 130-159 mg/dL High............... 160-189 mg/dL Very High.......... >=190 mg/dL * Source: National Cholesterol Education Program (NCEP) 10 Note: Persistent reduction for 3 months or more in an eGFR <60 mL/min/1.73 m2 defines CKD. Patients with eGFR values >/=60 mL/min/1.73 m2 may also have CKD if evidence of persistent proteinuria is present. The original MDRD equation for estimated GFR is not valid for patients less than 18 years of age. Additional information may be found at www.kdoqi.org. 11 Method: Sediplast Modified Westergren 12 Vitamin D deficiency has been defined by the [place] [employer] and an Endocrine Society practice guideline as a level of serum 25-OH vitamin D less than 20 ng/mL (1,2). The Endocrine Society went on to further define vitamin D insufficiency as a level between 21 and 29 ng/mL (2). 1. IOM ([place] [employer]). 2010. Dietary reference intakes for calcium and D. [place]: The National Academies Press. 2. Lucy MF, Cele NC, Letha SOUTH, et al. Evaluation, treatment, and prevention of vitamin D deficiency: an Endocrine Society clinical practice guideline. JCEM. 2010; 96(7):1911-30. Performed at: RN - [facility] [address] [id number] Certified Lactation Educator: Zaira Fuchs MD, Phone: [phone] CP 14 0.0 - 0.045 ng/mL: Normal 0.046 - 0.5 ng/mL: Suggestive 0.6 - 1.5 ng/mL: Consistent 15 TODAY 16 Updated reference range on new analyzer 17 Updated reference range on new analyzer 18 Concerning GFR Guidelines for Americans: Normal function or mild renal disease, if clinically at risk: >/=60 mL/min Moderately decreased: 30-59 Severely decreased: 15-29 Renal failure: <15 19 Concerning GFR Guidelines: Normal function or mild renal disease, if clinically at risk: >/=60 mL/min Moderately decreased: 30-59 Severely decreased: 15-29 Renal failure: <15 Glomerular Filtration Rate (GFR) is estimated based on the MDRD equation, which assumes a steady state for creatinine as recommended by the National Kidney Disease Education Program in conjunction with the National Institutes of Health and the National Kidney Foundation. Clinical conditions in which it may be necessary to measure GFR by using clearance methods include extremes of age and body size, severe malnutrition or obesity, diseases of skeletal muscle, paraplegia or quadriplegia, vegetarian diet, rapidly changing kidney function, and calculation of the dose of potentially toxic drugs that are excreted by the kidneys. 20 Updated reference range on new analyzer 21 Per NCEP ATP III Guidelines: Results lower than 40 mg/dL are suggestive of increased risk for coronary artery disease. Results > or=to 60 mg/dL are considered a negative risk factor. 22 Per NCEP ATP III Guidelines: Normal Population <130 Patients with medical conditions: CHD/DM Optimal: <100 Borderline high: 130-159 High: 160-189 Very high: >189 23 Note: Persistent reduction for 3 months or more in an eGFR <60 mL/min/1.73 m2 defines CKD. Patients with eGFR values >/=60 mL/min/1.73 m2 may also have CKD if evidence of persistent proteinuria is present. The original MDRD equation for estimated GFR is not valid for patients less than 18 years of age. Additional information may be found at www.kdoqi.org. 24 A low TSH should not be the sole basis for diagnosing primary hyperthyroidism, or primary hypopituitary function. Additional tests are suggested for confirmation. 25 Vitamin D deficiency has been defined by the [place] [employer] and an Endocrine Society practice guideline as a level of serum 25-OH vitamin D less than 20 ng/mL (1,2). The Endocrine Society went on to further define vitamin D insufficiency as a level between 21 and 29 ng/mL (2). 1. IOM ([place] [employer]). 2010. Dietary reference intakes for calcium and D. [place]: The National Academies Press. 2. Cele Caicedo, Letha SOUTH, et al. Evaluation, treatment, and prevention of vitamin D deficiency: an Endocrine Society clinical practice guideline. JCEM. 2010; 96(7):4191-30. Performed at: - [facility] [address] [id number] Certified Lactation Educator: Zaira Fuchs MD, Phone: [phone] 26 Note: Persistent reduction for 3 months or more in an eGFR <60 mL/min/1.73 m2 defines CKD. Patients with eGFR values >/=60 mL/min/1.73 m2 may also have CKD if evidence of persistent proteinuria is present. The original MDRD equation for estimated GFR is not valid for patients less than 18 years of age. Additional information may be found at www.kdoqi.org. 27 A low TSH should not be the sole basis for diagnosing primary hyperthyroidism, or primary hypopituitary function. Additional tests are suggested for confirmation. 28 Vitamin D deficiency has been defined by the [place] [employer] and an Endocrine Society practice guideline as a level of serum 25-OH vitamin D less than 20 ng/mL (1,2). The Endocrine Society went on to further define vitamin D insufficiency as a level between 21 and 29 ng/mL (2). 1. IOM ([place] [employer]). 2010. Dietary reference intakes for calcium and D. [place]: The National Academies Press. 2. Cele Caicedo, Letha SOUTH, et al. Evaluation, treatment, and prevention of vitamin D deficiency: an Endocrine Society clinical practice guideline. JCEM. 2010; 96(7):1911-30. Performed at: RN - [facility] [address] [id number] Certified Lactation Educator: Zaira Fuchs MD, Phone: [phone] 29 Note: Persistent reduction for 3 months or more in an eGFR <60 mL/min/1.73 m2 defines CKD. Patients with eGFR values >/=60 mL/min/1.73 m2 may also have CKD if evidence of persistent proteinuria is present. The original MDRD equation for estimated GFR is not valid for patients less than 18 years of age. Additional information may be found at www.kdoqi.org. 30 Vitamin D deficiency has been defined by the [place] [employer] and an Endocrine Society practice guideline as a level of serum 25-OH vitamin D less than 20 ng/mL (1,2). The Endocrine Society went on to further define vitamin D insufficiency as a level between 21 and 29 ng/mL (2). 1. IOM ([place] [employer]). 2010. Dietary reference intakes for calcium and D. [place]: The National Academies Press. 2. Lucy MF, Cele TAVAREZ, Lteha SOUTH, et al. Evaluation, treatment, and prevention of vitamin D deficiency: an Endocrine Society clinical practice guideline. JCEM. 2010; 96(7):1911-30. Performed at: RN - [facility] [address] [id number] Certified Lactation Educator: Zaira Fuchs MD, Phone: [phone] 31 FASTING 32 Note: Persistent reduction for 3 months or more in an eGFR <60 mL/min/1.73 m2 defines CKD. Patients with eGFR values >/=60 mL/min/1.73 m2 may also have CKD if evidence of persistent proteinuria is present. The original MDRD equation for estimated GFR is not valid for patients less than 18 years of age. Additional information may be found at www.kdoqi.org. 33 FASTING 34 Vitamin D deficiency has been defined by the [place] [employer] and an Endocrine Society practice guideline as a level of serum 25-OH vitamin D less than 20 ng/mL (1,2). The Endocrine Society went on to further define vitamin D insufficiency as a level between 21 and 29 ng/mL (2). 1. IOM ([place] [employer]). 2010. Dietary reference intakes for calcium and D. [place]: The National Academies Press. 2. Lucy MF, Cele TAVAREZ, Letha SOUTH, et al. Evaluation, treatment, and prevention of vitamin D deficiency: an Endocrine Society clinical practice guideline. JCEM. 2010; 96(7):1911-30. Performed at: - [facility] [id number] Certified Lactation Educator: Kvng Ernst MD, Phone: [phone] FASTING [facility] QUERY: @EMR Pat ID: QUERY: @EMR Req #: 36 Note: Persistent reduction for 3 months or more in an eGFR <60 mL/min/1.73 m2 defines CKD. Patients with eGFR values >/=60 mL/min/1.73 m2 may also have CKD if evidence of persistent proteinuria is present. The original MDRD equation for estimated GFR is not valid for patients less than 18 years of age. Additional information may be found at www.kdoqi.org. 37 FASTING [facility] QUERY: @EMR Pat ID: QUERY: @EMR Req #: 38 Effective September 21, 2011 Vitamin D, 25-Hydroxy reference intervals will be changing to 30-100. Recent studies consider the lower limit of 32.0 ng/mL to be a threshold for optimal health. Segundo BARNES. J Nutr. 2004;135(2):317-22. Performed at: - [facility] [id number] Certified Lactation Educator: Kvng Ernst MD, Phone: [phone] FASTING QUERY: @EMR Pat ID: QUERY: @EMR Req #: 40 Note: Persistent reduction for 3 months or more in an eGFR <60 mL/min/1.73 m2 defines CKD. Patients with eGFR values >/=60 mL/min/1.73 m2 may also have CKD if evidence of persistent proteinuria is present. The original MDRD equation for estimated GFR is not valid for patients less than 18 years of age. Additional information may be found at www.kdoqi.org. 41 FASTING QUERY: @EMR Pat ID: QUERY: @EMR Req #: 42 Recent studies consider the lower limit of 32.0 ng/mL to be a threshold for optimal health. [facility]. J Nutr. 2004;135(2):317-22. Performed at: [address] [id number] Certified Lactation Educator: Kvng Ernst MD, Phone: [phone] QUERY: @[facility] Pat ID: [id number] QUERY: @[facility] Req #: [id number] Verified by repeat analysis Negative <0.9 Indeterminate 0.9 - 1.0 Positive >1.0 Performed at: [address] [id number] Certified Lactation Educator: Kvng Ernst MD, Phone: [phone] 45 Note: Persistent reduction for 3 months or more in an eGFR <60 mL/min/1.73 m2 defines CKD. Patients with eGFR values >/=60 mL/min/1.73 m2 may also have CKD if evidence of persistent proteinuria is present. The original MDRD equation for estimated GFR is not valid for patients less than 18 years of age. Additional information may be found at www.kdoqi.org. 46 QUERY: @[facility] Pat ID: [id number] QUERY: @[facility] Req #: [id number] 47 Recent studies consider the lower limit of 32.0 ng/mL to be a threshold for optimal health. Raymond . J Nutr. 2004;135(2):317-22. Performed at: [address] [id number] Certified Lactation Educator: Kvng Ernst MD, Phone: [phone] FASTING 49 Note: Persistent reduction for 3 months or more in an eGFR <60 mL/min/1.73 m2 defines CKD. Patients with eGFR values >/=60 mL/min/1.73 m2 may also have CKD if evidence of persistent proteinuria is present. The original MDRD equation for estimated GFR is not valid for patients less than 18 years of age. Additional information may be found at www.kdoqi.org. 50 A low TSH should not be the sole basis for diagnosing primary hyperthyroidism, or primary hypopituitary function. Additional tests are suggested for confirmation. 51 Recent studies consider the lower limit of 32.0 ng/mL to be a threshold for optimal health. Raymond BW. J Nutr. 2004;135(2):317-22. 52 Recent studies consider the lower limit of 32.0 ng/mL to be a threshold for optimal health. Raymond . J Nutr. 2004;135(2):317-22. 53 Recent studies consider the lower limit of 32.0 ng/mL to be a threshold for optimal health. Raymond . J Nutr. 2004;135(2):317-22. 54 FASTING SCHEDULE FASTNG 55 Normal Range: Male: <4.98 Female: <4.45 56 Specimen: [id number] - TEST: UR SPECIMEN COMMENTS: GASTRIC BIOPSY TEST: UR 57 Indeterminate: 3.4 - 5.4 Deficient: <3.4 Procedures Date Code Description Status 11/28/2018 03733 Brief Emotional/Behav Assessment W/ Scoring Doc Per Completed Standard Inst 11/28/2018 92210 Measure Blood Oxygen Level Single Determination Completed 09/16/2018 61391 Brief Emotional/Behav Assessment W/ Scoring Doc Per Completed Standard Inst 07/21/2018 [id number] Colonoscopy Completed 04/18/2018 00925 Brief Emotional/Behav Assessment W/ Scoring Doc Per Completed Standard Inst 02/08/2018 91420 ECHO Transthoracis 2D W Spectral Doppler Completed 01/28/2018 90012 Measure Blood Oxygen Level Single Determination Completed 08/27/2017 [id number] Bone Mineral Density Test Completed 04/17/2008 41514 Inject/Drain Joint/Bursa Major W/Out Ultrasound Completed Guidance 03/13/2008 07746 Colonoscopy Flexible Diagnostic Completed 09/16/2007 51765 Colonoscopy Flexible Diagnostic Completed 02/01/2006 81665 Doppler Color Flow Velocity Mapping Completed 02/01/2006 05785 Doppler Echocardiography Complete Completed 02/01/2006 13297 ECHO Complete W/O Spectral Or Color Doppler Completed Encounters Type Date Location Provider Dx Diagnosis Office Visit 11/28/2018 [facility] Shawanda Montgomery MD F32.1 Major depressive 9:45a disorder, single episode, moderate K21.9 Gastro-esophageal reflux disease without esophagitis E55.9 Vitamin D deficiency, unspecified N95.9 Unspecified menopausal and perimenopausal disorder E03.9 Hypothyroidism, unspecified M12.9 Arthropathy, unspecified M54.16 Radiculopathy, lumbar region M54.2 Cervicalgia G47.33 Obstructive sleep apnea (adult) (pediatric) E66.9 Obesity, unspecified Z68.32 Body mass index (BMI) 32.0-32.9, adult Office Visit 09/16/2018 3:45p [facility] Shawanda Montgomery MD Z68.32 Body mass index (BMI) 32.0-32.9, adult Z13.89 Encounter for screening for other disorder F32.1 Major depressive disorder, single episode, moderate M54.16 Radiculopathy, lumbar region G47.33 Obstructive sleep apnea (adult) (pediatric) Z13.31 Encounter for screening for depression Office Visit 08/16/2018 9:45a [facility] Shawanda Montgomery MD K21.9 Gastro- esophageal reflux disease without esophagitis E55.9 Vitamin D deficiency, unspecified N95.9 Unspecified menopausal and perimenopausal disorder F32.1 Major depressive disorder, single episode, moderate E03.9 Hypothyroidism, unspecified M12.9 Arthropathy, unspecified M54.16 Radiculopathy, lumbar region M54.2 Cervicalgia Z71.9 Counseling, unspecified Z68.31 Body mass index (BMI) 31.0-31.9, adult Office Visit 06/10/2018 3:45p [facility] Shawanda Montgomery MD M54.16 Radiculopathy , lumbar region M54.2 Cervicalgia Z68.31 Body mass index (BMI) 31.0-31.9, adult Office Visit 04/18/2018 10:00a [facility] Shawanda Montgomery MD F32.1 Major depressive disorder, single episode, moderate K21.9 Gastro-esophageal reflux disease without esophagitis E55.9 Vitamin D deficiency, unspecified N95.9 Unspecified menopausal and perimenopausal disorder E03.9 Hypothyroidism, unspecified I05.9 Rheumatic mitral valve disease, unspecified M12.9 Arthropathy, unspecified M54.16 Radiculopathy, lumbar region M54.2 Cervicalgia Z68.31 Body mass index (BMI) 31.0-31.9, adult Office Visit 01/28/2018 2:30p [facility] Shawanda Montgomery MD R07.9 Chest pain, unspecified K21.9 Gastro-esophageal reflux disease without esophagitis E03.9 Hypothyroidism, unspecified Z11.59 Encounter for screening for other viral diseases Z13.220 Encounter for screening for lipoid disorders I34.0 Nonrheumatic mitral (valve) insufficiency Z12.11 Encounter for screening for malignant neoplasm of colon Z68.31 Body mass index (BMI) 31.0-31.9, adult Office Visit 09/06/2017 8:00a [facility] Homar Haney, E03.9 Hypothyroidism, DO unspecified E55.9 Vitamin D deficiency, unspecified F32.1 Major depressive disorder, single episode, moderate K21.9 Gastro-esophageal reflux disease without esophagitis N95.9 Unspecified menopausal and perimenopausal disorder K29.00 Acute gastritis without bleeding Office Visit 03/01/2017 8:00a [facility] Homar Haney, E03.9 Hypothyroidism, DO unspecified E55.9 Vitamin D deficiency, unspecified F32.1 Major depressive disorder, single episode, moderate K21.9 Gastro-esophageal reflux disease without esophagitis N95.9 Unspecified menopausal and perimenopausal disorder K29.00 Acute gastritis without bleeding Z23 Encounter for immunization R53.81 Other malaise Office Visit 08/31/2016 10:00a [facility] Homar Haney, E03.9 Hypothyroidism, DO unspecified F32.1 Major depressive disorder, single episode, moderate K21.9 Gastro-esophageal reflux disease without esophagitis N95.9 Unspecified menopausal and perimenopausal disorder K29.00 Acute gastritis without bleeding E55.9 Vitamin D deficiency, unspecified M54.2 Cervicalgia Office Visit 01/13/2016 8:00a [facility] Homar Haney, E03.9 Hypothyroidism, DO unspecified F32.1 Major depressive disorder, single episode, moderate K21.9 Gastro-esophageal reflux disease without esophagitis E55.9 Vitamin D deficiency, unspecified N95.9 Unspecified menopausal and perimenopausal disorder K29.00 Acute gastritis without bleeding Z68.29 Body mass index (BMI) 29.0-29.9, adult Office Visit 07/15/2015 8:00a [facility] Homar Haney DO 244.9 Hypothyroidism Other Unspec 296.22 Depressive Disorder Major Single Episode Moderate 530.81 Esophageal Reflux 268.9 Vitamin D Deficiency Unspec 627.9 Menopausal & Postmenopausal Disorder Unspec 535.00 Gastritis Acute W/O Hemorrhage Office Visit 01/07/2015 8:00a [facility] Homar Haney DO 244.9 Hypothyroidism Other Unspec 296.22 Depressive Disorder Major Single Episode Moderate 530.81 Esophageal Reflux 268.9 Vitamin D Deficiency Unspec 627.9 Menopausal & Postmenopausal Disorder Unspec 535.00 Gastritis Acute W/O Hemorrhage V76.12 Screening Mammogram Raymond Isidro Other Office Visit 12/04/2014 9:00a [facility] Lyndon Homar 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 Z68.28 Body mass index (BMI) 28.0-28.9, adult Plan of Treatment Future Appointment(s):03/20/2019 9:15 am - Schedule, [facility]es at [facility]05/22/2019 10 :00 am - Schedule, Laboratory at [facility]05/29/2019 1:15 pm - Shawanda Montgomery [facility] at [facility]03/10/2019 - Shawanda Montgomery MDH66.42 Suppurative otitis media, unspecified, LEFT earNew Medication:Amoxicillin 875 mg - 1 by mouth twice a day for 10 daysComments:She will be treated with antibiotics.Follow up:Follow up as scheduled.M54.16 Radiculopathy, lumbar regionComments:she would like to see a different pain specialist - transportation to her current facility is difficult.Referral:David Mckay, Physical Medicine/FyygqT74.32 Body mass index (BMI) 32.0-32.9, adultComments:The BMI is the ratio between height and weight. goal for a person under age 65 is between 18.5 and 25. You are overweight. Work on healthy lifestyle, with regular exercise (20 min daily will help) and eat a healthy diet. formal diet plans work best.
--- OUTSIDE RECORDS SUMMARY | 2019-03-25 14:05 | XMS REPORT | Continuity of Care Document ---
:1955 External Reference #:[id number] Author Name Shawanda Montgomery MD Address [address] [facility] [place] [address] Care Team Providers Name Role Phone Shawanda Montgomery MD Primary Care Physician Unavailable Payers Date Identification Numbers Payment Provider Subscriber Effective: 2008 Policy Number: [id number] [facility] [place] [facility] Keren Torres PayID: [id number] [address] [place] [address] Expires: 2008 Policy Number: [id number] [employer] DO Not Use Keren Torres Group Number: [id number] [address] PayID: [id number] [address] Problems Active Problems Provider Date Gastroesophageal reflux [...] Medications Active Medications SIG Qnty Indications Ordering Date Provider Loratadine 1 by mouth every otc Shawanda Montgomery, 03/21/2019 10mg Tablets day as needed MD nasal congestion Fluticasone 2 sprays each 16gm Shawanda Montgomery, 03/21/2019 Propionate nostril daily MD 50mcg/Act Suspension Cefdinir 1 by mouth every 20caps H66.42 Shawanda Montgomery, 03/21/2019 300mg Capsules 12 hours x 10 days MD Melatonin 1 by mouth every 30caps Shawanda Montgomery, 04/18/2018 3mg Capsules night at bedtime MD as needed otc Valacyclovir HCL take 2 tablets 8tabs B00.9 Shawanda Montgomery, 09/29/2016 1gm every 12 hours x 1 MD Tablets day then if needed for cold sore Vitamin D 2 by mouth every 30tabs E55.9 Shawanda Montgomery, 08/31/2016 2000Unit day MD Tablets Rabeprazole Sodium take 1 tablet by 90tabs K21.9 Shawanda Montgomery, 2013 20mg mouth once daily MD Tablets K29.00 Levothyroxine Sodium take 1 tablet by 90tabs E03.9 Shawanda Montgomery, 2010 88mcg mouth once daily MD Tablets Alkalol as needed for ear Unknown Solution symptoms Restasis 1 drop in each eye Unknown 0.05% Emulsion twice a day in both eyes Acetaminophen 2 by mouth three Unknown 500mg Tablets times a day as needed Aleve 2 by mouth twice a Unknown 220mg Tablets day Vitamin E 1 by mouth every day Unknown 400Unit Capsules Saline Nasal [place] 1-2sprays as needed Unknown 0.65% congestion Solution Zicam Cold Remedy take as directed Unknown Tablets Dispers Citrucel 1 tablespoon as Unknown Powder needed daily to bulk stool and reduce constipation abdominal pain Magnesium One tablet at night Unknown Chloride-Calcium 64-112mg Tablets History Medications Amoxicillin 1 by mouth 20tabs H66.42 Shawanda Montgomery, 03/10/2019 - 875mg Tablets twice a day for MD 03/20/2019 10 days Escitalopram Oxalate 1/2 by mouth 30tabs F32.1 Shawanda Montgomery, 2017 - 10mg every day MD 09/15/2018 Tablets Citra PH 1 tbls qday Shawanda Montgomery, 04/18/2018 - 2.7GM/30ML MD 09/15/2018 Solution Escitalopram Oxalate 1 by mouth 30tabs F32.1 Shawanda Montgomery, 04/18/2018 - 10mg every day MD 06/10/2018 Tablets Sertraline HCL 1 by mouth 90tabs Lyndon, 07/15/2015 - 50mg every day Homar, 01/13/2016 Tablets Bupropion HCL ER (XL) 1 PO Q D 30tabs 296.33 Lyndon, 12/04/2014 - Homar, 01/07/2015 150mg Tablets ER 24HR Triamcinolone apply to sore 15gm Lyndon, 01/30/2013 - Acetonide bid Homar, DO 01/07/2015 0.1% Paste Vitamin D 1 po bid Lyndon, 01/25/2012 - (Cholecalciferol) Homar, 07/15/2015 1000Unit Tablets Vitamin D take 1 capsule Unknown - (Ergocalciferol) by mouth every 08/31/2016 week 58577Jkia Capsules Immunizations CPT Code Status Date Vaccine Reaction Lot # [id number] Given 08/02/2018 Flu Vaccine NOS given at pharmacy 21065 Given 08/01/2017 Afluria Or Fluvirin Flu Vac Intramuscular 75100 Given 03/01/2017 Tdap (Adacel) Ages 7 And Pt tolerated well [id number] Above Only 52399 Given 08/22/2015 Influenza Virus RECEIVED AT [facility]. Vaccine,Quadrivalent,Split, Preserv Free, 0.5mL,[place] [address] Given 08/30/2014 Afluria Or Fluvirin Flu Vac RECEIVED AT [facility]. [address]607 Refused 11/28/2018 Shingrix (Shingles) Zoster Vaccine HZV, Recombinant , Subunit, Adj Vital Signs Date Vital Result Comment 03/21/2019 9:53am Body Temperature 98.0 F Weight 168.00 lb Heart Rate 90 /min BP Systolic 126 mmHg BP Diastolic 72 mmHg Respiratory Rate 18 /min Height 60.50 inches 5'0.50" O2 % BldC Oximetry 97 % Ra BMI (Body Mass Index) 32.3 kg/m2 03/10/2019 10:39am Body Temperature 98.1 F Weight [...] H/L Range Note Laboratory test finding 01/26/2019 [facility] TSH 4.19 uIU/mL 0.35-4.94 1 Laboratory test finding 07/28/2018 [facility] TSH 1.10 uIU/mL 0.35-4.94 2 CBC with [facility]/uL 4.1-11.0 RBC 4.36 M/uL [...] Factor <10.0 IU/mL 0.0-10.0 Laboratory test 01/31/2018 [facility] Hepatitis C 0.1 s/ corat 0.0-0.9 4, 5 finding (315)- - Antibody Thyroid Stim Hormone 0.85 uIU/mL N 0.30-4.20 Lipid Panel-fcmg 01/31/2018 [facility] Cholesterol 186 mg /dL <200 6 (315)- - Triglycerides 106 mg/dL <150 7 HDL Cholesterol 54 mg/dL >40 8 LDL-Cholesterol 111 mg/dL < 100 9 Hepatic (Liver) 01/31/2018 [facility] Total Protein 7.5 g /dL N 6.4-8.2 Panel-fcmg (315)- - Albumin 4.0 g/dL N 3.4-5.0 Globulin 3.5 g/dL N 1.9-4.3 Alb/Glob 1.1 ratio Bilirubin,Total 0.5 mg/dL N 0.2-1.0 Bilirubin,Direct 0.1 mg/dL N 0.0-0.2 Bilirubin,Indirect 0.4 mg/dL N 0.0-0.9 Sgot/Ast 17 U/L N 15-37 SGPT/Alt 28 U/L N 12-78 Alkaline Phosphatase 69 U/L N 45-117 BMP (Basic) 01/31/2018 [facility] Glucose 90 mg/dL N 74 [...] 9.1 mg/dL N 8.5-10.1 Laboratory test 01/31/2018 [facility] Sedimentation Rate 6 mm/hr N 0-30 11 finding (315)- - Vitamin D,25-Hydroxy 50.7 ng/mL 30.0-100.0 12 CBC 01/31/2018 [facility] White Blood Count 5.4 K/uL N 3.1-10.7 [...] 10.6 fL N 8.9-12.4 Laboratory test 01/08/2018 [facility] Troponin-I < 0.015 13, 14 finding (315)- - ng/mL CBS W/Automated 01/08/2018 [facility] White Blood 8.7 K/ uL N 3.1-10 [...] 40.4-72.8 Lymph % 47.5 % High 20.0-42.0 [place] % 6.1 % N 4.3-13.2 Eo% 2.1 % N 0.0-6.6 Bas% 0.6 % N 0.0-1.1 Neut# 3.80 K/uL N 1.8-7.0 Lymph # 4.13 K/uL High 1.0-4.0 [place] # 0.53 K/uL N 0.3-0.9 Eos # 0.18 K/uL N 0.0-0.5 Baso # 0.05 K/uL N 0.0-0.1 Laboratory test finding 09/06/2017 [facility] TSH 1.54 uIU/mL 0.35-4.94 15 Free T4 1.01 ng/dL 0.70-1.48 Vit D25oh 55 ng/mL 31-100 CBC With Auto Diff 09/06/2017 [facility] WBC 6.3 K/uL 4.1-11.0 RBC 4.39 M/uL [...] 17 mg/dL 6-26 Laboratory test finding 09/06/2017 [facility] Magnesium 2.1 mg/dL 1.5-2.7 Lipid 09/06/2017 [facility] Cholesterol 214 mg/dL High 50-199 Triglycerides 113 [...] 0.0 K/uL 0.0-0.3 Laboratory test finding 03/01/2017 [facility] Vitamin B12 772 pg/mL 180- 914 Rheumatoid Factor <10.0 IU/mL 0.0-10.0 Kandy Screen With Reflex-FCMG 03/01/2017 [facility] Kandy Screen NEGATIVE dsDNA IgG NEGATIVE Laboratory test finding 03/01/2017 [facility] Esr 2 mm/hr 0-20 TSH 0.77 uIU/mL [...] 30.8-34.3 Mean Platelet Volume 11.2 fL 8.9-12.4 [place] # 0.49 K/uL 0.3-0.9 [place] % 7.6 % 4.3-13.2 Neut# 3.03 K/uL [...] 30.8-34.3 Mean Platelet Volume 10.8 fL 8.9-12.4 [place] # 0.59 K/uL 0.3-0.9 [place] % 8.1 % 4.3-13.2 Neut# 3.58 K/uL [...] 30.8-34.3 Mean Platelet Volume 10.3 fL 8.9-12.4 [place] # 0.62 K/uL 0.3-0.9 [place] % 11.0 % 4.3-13.2 Neut# 2.55 K/uL [...] 30.8-34.3 Mean Platelet Volume 10.9 fL 8.9-12.4 [place] # 0.54 K/uL 0.3-0.9 [place] % 8.8 % 4.3-13.2 Neut# 2.60 K/uL [...] 30.8-34.3 Mean Platelet Volume 10.6 fL 8.9-12.4 [place] # 0.46 K/uL 0.3-0.9 [place] % 8.2 % 4.3-13.2 Neut# 2.33 K/uL [...] 30.8-34.3 Mean Platelet Volume 10.5 fL 8.9-12.4 [place] # 0.53 K/uL 0.3-0.9 [place] % 8.3 % 4.3-13.2 Neut# 3.10 K/uL [...] 30.8-34.3 Mean Platelet Volume 10.3 fL 8.9-12.4 [place] # 0.5 K/uL 0.3-0.9 [place] % 8.7 % 4.3-13.2 Neut# 2.7 K/uL [...] 30.8-34.3 Mean Platelet Volume 10.9 fL 8.9-12.4 [place] # 0.5 K/uL 0.3-0.9 [place] % 9.8 % 4.3-13.2 Neut# 2.5 K/uL [...] 32.0-100.0 52 Vitamin B12 And Folate 01/04/2009 N2N/[employer] Import Folic Acid 15.0 ng/mL 6.0-15.4 Vitamin [...] with a HCV Nucleic Acid Amplification test (000909). Performed at: - [facility] [address] [id number] Regional Property Manager: Zaira Fuchs MD, Phone: [phone] Reference Guidelines*: Desirable: ........... < 200 [...] D deficiency has been defined by the [place] of [employer] and an Endocrine Society practice guideline as a level of serum 25-OH vitamin D less than 20 ng/mL (1,2). The Endocrine Society went on to further define vitamin D insufficiency as a level between 21 and 29 ng/mL (2). 1. IOM ([place] of [employer]). 2010. Dietary reference intakes for calcium and D. [place]: The National Academies Press. 2. Lucy MF, Cele TAVAREZ, Letha SOUTH, et al. Evaluation, treatment, and prevention of vitamin D deficiency: an Endocrine Society clinical practice guideline. JCEM. 2010; 96(7):1911-30. Performed at: RN - [facility] [address] [id number] Regional Property Manager: Zaira Fuchs MD, Phone: [phone] CP 14 0.0 - 0.045 ng/mL: [...] D deficiency has been defined by the [place] of [employer] and an Endocrine Society practice guideline as a level of serum 25-OH vitamin D less than 20 ng/mL (1,2). The Endocrine Society went on to further define vitamin D insufficiency as a level between 21 and 29 ng/mL (2). 1. IOM ([place] [employer]). 2010. Dietary reference intakes for calcium and D. [place]: The National Academies Press. 2. Lucy MF, Cele [place], Letha SOUTH, et al. Evaluation, treatment, and prevention of vitamin D deficiency: an Endocrine Society clinical practice guideline. JCEM. 2010; 96(7):1911-30. Performed at: RN - [facility] [address] [id number] Regional Property Manager: Zaira Fuchs MD, Phone: [phone] Note: Persistent reduction for 3 months [...] D deficiency has been defined by the [place] of [employer] and an Endocrine Society practice guideline as a level of serum 25-OH vitamin D less than 20 ng/mL (1,2). The Endocrine Society went on to further define vitamin D insufficiency as a level between 21 and 29 ng/mL (2). 1. IOM ([place] [employer]). 2010. Dietary reference intakes for calcium and D. [place]: The National Academ[employer] Press. 2. Cele Caicedo, Letha SOUTH, et al. Evaluation, treatment, and prevention of vitamin D deficiency: an Endocrine Society clinical practice guideline. JCEM. 2010; 96(2):1911-30. Performed at: RN - [facility] [address] [id number] Regional Property Manager: Zaira Fuchs MD, Phone: [phone] Note: Persistent reduction for 3 months [...] D deficiency has been defined by the [place] of [employer] and an Endocrine Society practice guideline as a level of serum 25-OH vitamin D less than 20 ng/mL (1,2). The Endocrine Society went on to further define vitamin D insufficiency as a level between 21 and 29 ng/mL (2). 1. IOM ([place] [employer]). 2010. Dietary reference intakes for calcium and D. [place]: The National Academies Press. 2. Cele Caicedo, Letha SOUTH, et al. Evaluation, treatment, and prevention of vitamin D deficiency: an Endocrine Society clinical practice guideline. JCEM. 2010; 96(7):1911-30. Performed at: RN - [facility] [address] [id number] Regional Property Manager: Zaira Fuchs MD, Phone: [phone] FASTING 32 Note: Persistent reduction for [...] D deficiency has been defined by the [place] of [employer] and an Endocrine Society practice guideline as a level of serum 25-OH vitamin D less than 20 ng/mL (1,2). The Endocrine Society went on to further define vitamin D insufficiency as a level between 21 and 29 ng/mL (2). 1. IOM ([place] [employer]). 2010. Dietary reference intakes for calcium and D. [place]: The National Academies Press. 2. Lucy MF, Cele [place], Letha SOUTH, et al. Evaluation, treatment, and prevention of vitamin D deficiency: an Endocrine Society clinical practice guideline. JCEM. 2010; 96(7):1911-30. Performed at: RN - [facility] [address] [id number] Regional Property Manager: Kvng Ernst MD, Phone: [phone] FASTING [facility] QUERY: @EMR Pat ID: [...] optimal health. Raymond BW. J Nutr. 2004;135(2):317-22. Performed at: [facility] [employer] [id number] Regional Property Manager: Kvng Ernst MD, Phone: [phone] FASTING QUERY: @EMR Pat ID: QUERY: [...] 41 FASTING QUERY: @EMR Pat ID: QUERY: @[facility] Req #: 42 Recent studies consider the lower limit of 32.0 ng/mL to be a threshold for optimal health. Raymond BW. J Nutr. 2004;135(2):317-22. Performed at: [facility] [employer] [id number] Regional Property Manager: Kvng Ernst MD, Phone: [phone] QUERY: @[employer] Pat ID: [id number] QUERY: @[employer] Req #: [id number] Verified by repeat analysis Negative <0.9 Indeterminate 0.9 - 1.0 Positive >1.0 Performed at: [facility] [employer] [id number] Regional Property Manager: Kvng Ernst MD, Phone: [phone] Note: Persistent reduction for 3 months or more in an eGFR <60 mL/min/1.73 m2 defines CKD. Patients with eGFR values >/=60 mL/min/1.73 m2 may also have CKD if evidence of persistent proteinuria is present. The original MDRD equation for estimated GFR is not valid for patients less than 18 years of age. Additional information may be found at www.kdoqi.org. 46 QUERY: @EMR Pat ID: [id number] QUERY: @EMR Req #: [id number] 47 Recent studies consider the lower limit of 32.0 ng/mL to be a threshold for optimal health. Raymond BW. J Nutr. 2005 Feb;135(2):317-22. Performed at: RN - [facility] [address] [id number] Regional Property Manager: Kvng Ernst MD, Phone: [phone] FASTING 49 Note: Persistent reduction for [...] optimal health. Raymond . J Nutr. 2004;135(2):317-22. 52 Recent studies consider the lower limit of 32.0 ng/mL to be a threshold for optimal health. Raymond . J Nutr. 2004;135(2):317-22. 53 Recent studies consider the lower limit of 32.0 ng/mL to be a threshold for optimal health. Raymond . J Nutr. 2004;135(2):317-22. 54 FASTING SCHEDULE FASTNG 55 Normal Range: Male: <4.98 Female: <4.45 56 Specimen: [id number] - TEST: UR SPECIMEN COMMENTS: GASTRIC BIOPSY TEST: UR 57 Indeterminate: 3.4 - 5.4 Deficient: <3.4 Procedures Date Code Description Status 11/28/2018 00457 Brief Emotional/Behav Assessment W/ Scoring Doc Per Completed Standard Inst 11/28/2018 15341 Measure Blood Oxygen Level Single Determination Completed 09/16/2018 17381 Brief Emotional/Behav Assessment W/ Scoring Doc Per Completed Standard Inst 07/21/2018 38734423 Colonoscopy Completed 04/18/2018 75340 Brief Emotional/Behav Assessment W/ Scoring Doc Per Completed Standard Inst 02/08/2018 18378 ECHO Transthoracis 2D W Spectral Doppler Completed 01/28/2018 85233 Measure Blood Oxygen Level Single Determination Completed 08/27/2017 278934923 Bone Mineral Density Test Completed 04/17/2008 61514 Inject/Drain Joint/Bursa Major W/Out Ultrasound Completed Guidance 03/13/2008 60446 Colonoscopy Flexible Diagnostic Completed 09/16/2007 71956 Colonoscopy Flexible Diagnostic Completed 02/01/2006 58312 Doppler Color Flow Velocity Mapping Completed 02/01/2006 27856 Doppler Echocardiography Complete Completed 02/01/2006 67087 ECHO Complete W/O Spectral Or Color Doppler Completed Encounters Type Date Location Provider Dx Diagnosis Office Visit 03/10/2019 [facility] Shawanda Montgomery MD H66.42 Suppurative otitis 10:30a media, unspecified, LEFT ear M54.16 Radiculopathy, lumbar region Z68.32 Body mass index (BMI) 32.0-32.9, adult Office Visit 11/28/2018 9:45a [facility] Shawanda Montgomery MD F32.1 Major depressive disorder, single episode, moderate K21.9 Gastro-esophageal reflux disease without esophagitis E55.9 Vitamin D deficiency, unspecified N95.9 Unspecified menopausal and perimenopausal disorder E03.9 Hypothyroidism, unspecified M12.9 Arthropathy, unspecified M54.16 Radiculopathy, lumbar region M54.2 Cervicalgia G47.33 Obstructive sleep apnea (adult) (pediatric) E66.9 Obesity, unspecified Z68.32 Body mass index (BMI) 32.0-32.9, adult Office Visit 09/16/2018 3:45p [facility] Shawanda Montgomery MD Z68.32 Body mass index (BMI) 32.0-32.9, adult Z13.89 Encounter for screening for other disorder F32.1 Major depressive disorder, single episode, moderate M54.16 Radiculopathy, lumbar region G47.33 Obstructive sleep apnea (adult) (pediatric) Z13.31 Encounter for screening for depression Office Visit 08/16/2018 9:45a [facility] Shawanda Montgomery MD K21.9 Gastro- esophageal reflux disease without esophagitis E55.9 Vitamin D deficiency, unspecified N95.9 Unspecified menopausal and perimenopausal disorder F32.1 Major depressive disorder, single episode, moderate E03.9 Hypothyroidism, unspecified M12.9 Arthropathy, unspecified M54.16 Radiculopathy, lumbar region M54.2 Cervicalgia Z71.9 Counseling, unspecified Z68.31 Body mass index (BMI) 31.0-31.9, adult Office Visit 06/10/2018 3:45p [facility] Shawanda Montgomery MD M54.16 Radiculopathy , lumbar region M54.2 Cervicalgia Z68.31 Body mass index (BMI) 31.0-31.9, adult Office Visit 04/18/2018 10:00a [facility] Shawanda Montgomery MD F32.1 Major depressive disorder, single episode, moderate K21.9 Gastro-esophageal reflux disease without esophagitis E55.9 Vitamin D deficiency, unspecified N95.9 Unspecified menopausal and perimenopausal disorder E03.9 Hypothyroidism, unspecified I05.9 Rheumatic mitral valve disease, unspecified M12.9 Arthropathy, unspecified M54.16 Radiculopathy, lumbar region M54.2 Cervicalgia Z68.31 Body mass index (BMI) 31.0-31.9, adult Office Visit 01/28/2018 2:30p [facility] Shawanda Montgomery MD R07.9 Chest pain, unspecified K21.9 Gastro-esophageal reflux disease without esophagitis E03.9 Hypothyroidism, unspecified Z11.59 Encounter for screening for other viral diseases Z13.220 Encounter for screening for lipoid disorders I34.0 Nonrheumatic mitral (valve) insufficiency Z12.11 Encounter for screening for malignant neoplasm of colon Z68.31 Body mass index (BMI) 31.0-31.9, adult Office Visit 09/06/2017 8:00a [facility] Homar Haney, E03.9 Hypothyroidism, DO unspecified E55.9 Vitamin D deficiency, unspecified F32.1 Major depressive disorder, single episode, moderate K21.9 Gastro-esophageal reflux disease without esophagitis N95.9 Unspecified menopausal and perimenopausal disorder K29.00 Acute gastritis without bleeding Office Visit 03/01/2017 8:00a [facility] Homar Haney E03.9 Hypothyroidism, DO unspecified E55.9 Vitamin D deficiency, unspecified F32.1 Major depressive disorder, single episode, moderate K21.9 Gastro-esophageal reflux disease without esophagitis N95.9 Unspecified menopausal and perimenopausal disorder K29.00 Acute gastritis without bleeding Z23 Encounter for immunization R53.81 Other malaise Office Visit 08/31/2016 10:00a [facility] Homar aHney, E03.9 Hypothyroidism, DO unspecified F32.1 Major depressive disorder, single episode, moderate K21.9 Gastro-esophageal reflux disease without esophagitis N95.9 Unspecified menopausal and perimenopausal disorder K29.00 Acute gastritis without bleeding E55.9 Vitamin D deficiency, unspecified M54.2 Cervicalgia Office Visit 01/13/2016 8:00a [facility] Homar Haney, E03.9 Hypothyroidism, DO unspecified F32.1 Major depressive disorder, single episode, moderate K21.9 Gastro-esophageal reflux disease without esophagitis E55.9 Vitamin D deficiency, unspecified N95.9 Unspecified menopausal and perimenopausal disorder K29.00 Acute gastritis without bleeding Z68.29 Body mass index (BMI) 29.0-29.9, adult Office Visit 07/15/2015 8:00a [facility] Homar Haney DO 244.9 Hypothyroidism Other Unspec 296.22 Depressive Disorder Major Single Episode Moderate 530.81 Esophageal Reflux 268.9 Vitamin D Deficiency Unspec 627.9 Menopausal & Postmenopausal Disorder Unspec 535.00 Gastritis Acute W/O Hemorrhage Office Visit 01/07/2015 8:00a [facility] Homar Haney DO 244.9 Hypothyroidism Other Unspec 296.22 Depressive Disorder Major Single Episode Moderate 530.81 Esophageal Reflux 268.9 Vitamin D Deficiency Unspec 627.9 Menopausal & Postmenopausal Disorder Unspec 535.00 Gastritis Acute W/O Hemorrhage V76.12 Screening Mammogram Malig Dwaine Other Office Visit 12/04/2014 9:00a [facility] Homar Haney DO 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 She was also given Flonase nasal spray to use every day. She was also given a prescription for cefdinir. If allergy medication is improving her symptoms recommended not to take antibiotics.Follow up:Follow up as scheduled.
[2019-03-25 14:15] VITALS: BP 123/61
--- NOTE | 2019-03-25 14:32 | UC ---
Ear Complaint HPI - HPI Summary HPI Summary: 63 yo female with left ear pressure and decreased hearing x 3 week congenital deafness right ear not better despite amox has been using flonase x 4 days no fever pain mild - History of Current Complaint Chief Complaint: UCEar Stated Complaint: EAR PAIN Time Seen by Provider: 03/25/19 14:07 Hx Obtained From: Patient Onset/Duration: Gradual Onset, Lasting Weeks Severity Initially: Mild Severity Currently: Mild Pain Intensity: 3 Pain Scale Used: 0-10 Numeric Aggravating Factors: Other Alleviating Factors: Nothing Associated Signs/Symptoms: Positive: Hearing Loss, URI Symptoms Related History: Other (Noted In Comments) - deafness right ear - Allergies/Home Medications Allergies/Adverse Reactions: Allergies Allergy/AdvReac Type Severity Reaction Status Date / Time No Known Allergies Allergy Verified 03/25/19 14:07 Home Medications: Home Medications Cyclosporine 0.05% OPHTH (NF) [Restasis 0.05% OPHTH] 1 drop DAILY 03/25/19 [ History Confirmed 03/25/19] Levothyroxine TAB* [Synthroid 88 MCG TAB*] 1 tab DAILY 03/25/19 [History Confirmed 03/25/19] Rabeprazole Sodium [Aciphex] 1 tab DAILY 03/25/19 [History Confirmed 03/25/19] PMH/Surg Hx/FS Hx/Imm Hx Previously Healthy: Yes - Surgical History Surgical History: Yes Surgery Procedure, Year, and Place: C SECTION. appendix. fatty tumor removal - Family History Known Family History: Positive: Hypertension - Social History Alcohol Use: Rare Substance Use Type: None Smoking Status (MU): Never Smoked Tobacco Review of Systems All Other Systems Reviewed And Are Negative: Yes Constitutional: Positive: Negative Skin: Positive: Negative Eyes: Positive: Negative ENT: Positive: Other - hearing loss left ear Respiratory: Positive: Negative Cardiovascular: Positive: Negative Gastrointestinal: Positive: Negative Genitourinary: Positive: Negative Motor: Positive: Negative Neurovascular: Positive: Negative Musculoskeletal: Positive: Negative Neurological: Positive: Negative Psychological: Positive: Negative Physical Exam Triage Information Reviewed: Yes Appearance: Well-Appearing, No Pain Distress, Well-Nourished Vital Signs: Initial Vital Signs Temp 97.6 F 03/25/19 14:08 Pulse 75 03/25/19 14:08 Resp 16 03/25/19 14:08 BP 123/61 03/25/19 14:08 Pulse Ox 99 03/25/19 14:08 Vital Signs Reviewed: Yes Eyes: Positive: Conjunctiva Clear ENT: Positive: TM bulging - left TM with bubble behind ear. Negative: Hearing grossly normal, Nasal congestion, Nasal drainage, Hoarse voice, Uvula midline Dental Exam: Normal Neck: Positive: Supple, Nontender, No Lymphadenopathy Respiratory: Positive: Lungs clear, Normal breath sounds, No respiratory distress, No accessory muscle use Cardiovascular: Positive: RRR, No Murmur Musculoskeletal: Positive: ROM Intact Neurological: Positive: Alert Psychological Exam: Normal Skin Exam: Normal Ear Complaint Course/Dx - Differential Dx/Diagnosis Provider Diagnosis: Left serous otitis media Discharge - Sign-Out/Discharge Documenting (check all that apply): Patient Departure All imaging exams completed and their final reports reviewed: No Studies - Discharge Plan Condition: Stable Disposition: HOME Patient Education Materials: Serous Otitis Media (ED) Referrals: Shawanda Montgomery MD [Primary Care Provider] - As Soon As Possible Additional Instructions: saline nasal spray 2 sprays each nostril twice daily about 5 minutes after the saline nasal spray use flonase twice daily If not better when you get back you will need to see an ENT - Billing Disposition and Condition Condition: STABLE Disposition: Home
== END 2019-03-25 14:37 | disposition home or self-care (01) ==
LOC: UCCORT 13:59
DX: H65.92 Unspecified nonsuppurative otitis media, left ear (principal)
CPT/HCPCS: 99211; G0463